=== PATIENT | male | born 1935 | race Caucasian/White ===

== ENCOUNTER 2017-02-20 08:26 | Outpatient (CLI) | payer MEDICARE ==
[2017-02-20 09:12] LABS: Cardiac Risk 2.7 (Less than 4.5)
== END 2017-02-20 08:27 | disposition home or self-care (01) ==
LOC: BURLAB 08:26
DX: I10 Essential (primary) hypertension (principal); E78.2 Mixed hyperlipidemia; R00.1 Bradycardia, unspecified
CPT/HCPCS: 36415; 80061